=== PATIENT | female | born 1990 | race African-American/Black ===

== ENCOUNTER 2018-03-01 10:24 | Emergency (ER) | payer MEDICAID ==
[2018-03-01] MEDS ORDERED: ACETAMINOPHEN 325 MG TABLET PO ONE (10:45)
--- NOTE | 2018-03-01 10:46 | ER Document Report ---
ED Medical Screen (RME) - General Chief Complaint: Foot Pain Stated Complaint: TOE INJURY Time Seen by Provider: 03/01/18 10:40 Notes: RME DISCLOSURE I have seen this patient as part of a Rapid Medical Evaluation and, if applicable, placed any initially appropriate orders. The patient will be seen and fully evaluated, including a full history and physical exam, by a provider ( in Main ED or Fast Track) when a room becomes available. 27-year-old female here with complaints of right second toe pain that started just prior to arrival when she fell in the bathtub and struck her toe on the bathtub. Pain is sharp. Pain is worse with movement. Pain is improved with minimizing movement. She has not taken anything for the pain thus for. No numbness tingling weakness. TRAVEL OUTSIDE OF THE [place] IN LAST 30 DAYS: No - Related Data Allergies/Adverse Reactions: No Known Allergies Allergy (Unverified 03/01/18 10:26) Past Medical History - Social History Chew tobacco use (# tins/day): No Frequency of alcohol use: None Drug Abuse: None Renal/ Medical History: Denies: Hx Peritoneal Dialysis Past Surgical History: Reports: Hx Section Physical Exam - Vital signs Vitals: Temp Pulse Resp BP Pulse Ox 98.7 F 93 16 118/81 100 03/01/18 10:40 03/01/18 10:40 03/01/18 10:40 03/01/18 10:40 03/01/18 10:40 Course - Vital Signs Vital signs: Temp Pulse Resp BP Pulse Ox 98.7 F 93 16 118/81 100 03/01/18 10:40 03/01/18 10:40 03/01/18 10:40 03/01/18 10:40 03/01/18 10:40
--- NOTE | 2018-03-01 10:49 | ER Document Report ---
HPI - HPI Patient complains to provider of: Injured her toes Onset: This morning Pain Level: 5 Context: 27-year-old female stumbled and injured her second right toe getting into the shower this morning. It is swollen and bruised and hurts to move. No previous injury. - MUSCULOSKELETAL Musculoskeletal: REPORTS: Extremity pain Past Medical History - Social History Smoking Status: Never Smoker Chew tobacco use (# tins/day): No Frequency of alcohol use: None Drug Abuse: None Lives with: Family Family History: Reviewed & Not Pertinent Patient has suicidal ideation: No Patient has homicidal ideation: No - Medical History Medical History: Negative Renal/ Medical History: Denies: Hx Peritoneal Dialysis Past Surgical History: Reports: Hx Section Vertical Provider Document - CONSTITUTIONAL Agree With Documented VS: Yes Exam Limitations: No Limitations - INFECTION CONTROL TRAVEL OUTSIDE OF THE [place] IN LAST 30 DAYS: No - HEENT HEENT: Normocephalic - NECK Neck: Supple - MUSCULOSKELETAL/EXTREMETIES Musculoskeletal/Extremeties: Edema - 2nd right toe, does flex with encouragement , sensation intact, 2+ DP, Eccymosis - NEURO Level of Consciousness: Awake, Alert Motor/Sensory: No Motor Deficit, No Sensory Deficit - DERM Integumentary: Warm, Dry Course - Re-evaluation Re-evalutation: 03/01/18 12:09 X-ray is negative - Vital Signs Vital signs: Temp Pulse Resp BP Pulse Ox 98.7 F 93 16 118/81 100 03/01/18 10:40 03/01/18 10:40 03/01/18 10:40 03/01/18 10:40 03/01/18 10:40 Procedures - Immobilization Right Toe Time completed: 12:45 Pre-Proc Neuro Vasc Exam: Normal Immobilizer type: Other - deonna tape Performed by: PCT Post-Proc Neuro Vasc Exam: Normal Alignment checked and good: Yes Discharge - Discharge Clinical Impression: Contusion of second toe, right Qualifiers: Encounter type: initial encounter Qualified Code(s): S90.121A - Contusion of right lesser toe(s) without damage to nail, initial encounter Condition: Good Disposition: HOME, SELF-CARE Instructions: Acetaminophen, Anti-Inflammatory Medication ([facility]), Deonna Taping ( toes) ([facility]), Contusion ([facility]), Stubbed Toe ([facility]) Additional Instructions: deonna tape for comfort tylenol for pain motrin for inflammation and pain copy of negative xray report given to you see orthopedic doctor if persists Prescriptions: Ibuprofen [Motrin 600 mg Tablet] 600 mg PO Q8HP PRN #30 tablet PRN Reason: Forms: Return to Work Referrals: BETSY DOMINGUEZ MD [ACTIVE STAFF] - Follow up as needed
--- NOTE | 2018-03-01 11:46 | RADIOLOGY REPORT (SQ) ---
EXAM DESCRIPTION: TOE RIGHT COMPLETED DATE/TIME: 03/01/2018 11:20 am REASON FOR STUDY: 2nd toe pain after fall; eval fx dislocation COMPARISON: None. NUMBER OF VIEWS: Three views. TECHNIQUE: AP, lateral, and oblique images acquired of the right second toe. LIMITATIONS: None. FINDINGS: MINERALIZATION: Normal. BONES: No acute fracture or dislocation. No worrisome bone lesions. JOINTS: No effusions. SOFT TISSUES: No soft tissue swelling. No foreign body. OTHER: No other significant finding. IMPRESSION: NEGATIVE STUDY OF THE RIGHT TOE. NO RADIOGRAPHIC EVIDENCE OF ACUTE INJURY. COMMENT: SITE OF TRAUMA/COMPLAINT MARKED/STAMP COMPLETED: YES. TECHNICAL DOCUMENTATION: JOB ID: [id number] [employer]- All Rights Reserved Reading location - IP/workstation name: [email or web address]
[2018-03-01] MEDS ORDERED: IBUPROFEN 600 MG TABLET PO ONE (12:08)
[2018-03-01 12:44] VITALS: BP 118/75
== END 2018-03-01 12:29 | disposition home or self-care (01) ==
LOC: ER 10:24
DX: S90.121A Contusion of right lesser toe(s) without damage to nail, initial encounter (principal); M79.89 Other specified soft tissue disorders; W22.8XXA Striking against or struck by other objects, initial encounter; Y92.002 Bathroom of unspecified non-institutional (private) residence as the place of occurrence of the external cause
CPT/HCPCS: 99283